=== PATIENT | female | born 1990 | race Two or more races ===

== ENCOUNTER 2024-07-12 20:27 | Emergency (ER) | payer MEDICAID | END 2024-07-12 21:36 | disposition home or self-care (01) | LOC: JP.ED 20:27 | DX: S30.0XXA Contusion of lower back and pelvis, initial encounter (principal); E11.9 Type 2 diabetes mellitus without complications; Z79.4 Long term (current) use of insulin; Z79.899 Other long term (current) drug therapy; Z88.6 Allergy status to analgesic agent; W00.0XXA Fall on same level due to ice and snow, initial encounter | CPT/HCPCS: 72220; 72220-26; 99283 ==